=== PATIENT | female | born 1945 | race Two or more races ===

== ENCOUNTER 2016-06-16 13:06 | Emergency (ER) | payer OTHER ==
[2016-06-16 13:22] VITALS: BMI 37.5
--- NOTE | 2016-06-16 13:30 | PDOC ---
History of Present Illness - General History Source: Patient Exam Limitations: No Limitations - History of Present Illness Initial Comments: 06/16/16 13:46 The patient is a 70 year old female with a significant past medical history of hypertension and asthma who presents to the ED with complaints of abdominal pain , nausea, and diarrhea for 2 days. The patient reports generalized abdominal pain with associated nausea and diarrhea. She reports an episode of yellow- colored watery stool last night and one episode of vomiting this morning. The patient reports a subjective fever last night associated with present symptoms. She states her son had diarrhea last week but notes his symptoms are getting better. Denies chest pain or shortness of breath. Denies hematochezia. Denies urinary changes. Denies any other symptoms. Social hx: The patient denies tobacco, drug, or alcohol use. Surgical hx: Tubal ligation PMD: Dr. Wolff. <Josué Monsalve - Last Filed: 06/16/16 13:46> <Ap Hwang - Last Filed: 06/16/16 17:21> - General Chief Complaint: Vomiting/Diarrhea Stated Complaint: FEVER/VOMITING Time Seen by Provider: 06/16/16 13:29 Past History <Josué Monsalve - Last Filed: 06/16/16 13:46> - Past Medical History Anemia: No Asthma: Yes Cancer: No Cardiac Disorders: No CVA: No COPD: No CHF: No Dementia: No Diabetes: No GI Disorders: No Disorders: No HTN: Yes Hypercholesterolemia: Yes Liver Disease: No Seizures: No Thyroid Disease: No - Surgical History Abdominal Surgery: No Appendectomy: No Cardiac Surgery: No Cholecystectomy: No Lung Surgery: No Neurologic Surgery: No Orthopedic Surgery: No - Psycho/Social/Smoking Cessation Hx Anxiety: No Suicidal Ideation: No Smoking Status: No Smoking History: Never smoked Have you smoked in the past 12 months: No Number of Cigarettes Smoked Daily: 0 Information on smoking cessation initiated: No Hx Alcohol Use: No Drug/Substance Use Hx: No Substance Use Type: None Hx Substance Use Treatment: No <Ap Hwang - Last Filed: 06/16/16 17:21> - Past Medical History Allergies/Adverse Reactions: Allergies Allergy/AdvReac Type Severity Reaction Status Date / Time No Known Allergies Allergy Verified 06/16/16 13:08 Home Medications: Ambulatory Orders Aspirin [ASA -] 81 mg PO DAILY 07/22/12 Telmisartan [Micardis] 40 mg PO DAILY 07/22/12 Metoprolol Succinate [Toprol XL -] 25 mg PO DAILY #0 tab.sr.24h 07/25/12 Albuterol Sulfate Inhaler - [Ventolin HFA Inhaler -] 2 inh PO Q4H PRN #1 inh 02/02 Azithromycin [Zithromax Z-TIAGO (5 DAYS) -] 250 mg PO ASDIR #6 tablet NS 08/30/14 Loratadine [Claritin -] 10 mg PO DAILY 08/30/14 Ondansetron [Zofran *Odt*] 8 mg SL TID #30 od.tablet 06/16/16 Review of Systems - Review of Systems Able to Perform ROS?: Yes Comments:: 06/16/16 13:46 GENERAL/CONSTITUTIONAL: + fever. No weakness. HEAD, EYES, EARS, NOSE AND THROAT: No change in vision. No ear pain or discharge. No sore throat. CARDIOVASCULAR: No chest pain or shortness of breath. RESPIRATORY: No cough, wheezing, or hemoptysis. GASTROINTESTINAL: + abdominal pain, nausea, vomiting, diarrhea. No constipation. GENITOURINARY: No dysuria, frequency, or change in urination. MUSCULOSKELETAL: No joint or muscle swelling or pain. No neck or back pain. SKIN: No rash NEUROLOGIC: No headache, vertigo, loss of consciousness, or change in strength/ sensation. ENDOCRINE: No increased thirst. No abnormal weight change. HEMATOLOGIC/LYMPHATIC: No anemia, easy bleeding, or history of blood clots. ALLERGIC/IMMUNOLOGIC: No hives or skin allergy. All Other Systems: Reviewed and Negative <Josué Monsalve - Last Filed: 06/16/16 13:46> *Physical Exam - Vital Signs Last Vital Signs Temp Pulse Resp BP Pulse Ox 98.3 F 101 H 18 146/62 96 06/16/16 13:09 06/16/16 13:09 06/16/16 13:09 06/16/16 13:09 06/16/16 13:09 - Physical Exam Comments: 06/16/16 13:46 GENERAL: Awake, alert, and fully oriented, in no acute distress HEAD: No signs of trauma EYES: PERRLA, EOMI, sclera anicteric, conjunctiva clear ENT: Auricles normal inspection, hearing grossly normal, nares patent, oropharynx clear without exudates. Moist mucosa NECK: Normal ROM, supple, no lymphadenopathy, JVD, or masses LUNGS: Breath sounds equal, clear to auscultation bilaterally. No wheezes, and no crackles HEART: Regular rate and rhythm, normal S1 and S2, no murmurs, rubs or gallops ABDOMEN: Soft, nontender, normoactive bowel sounds. No guarding, no rebound. No masses EXTREMITIES: Normal range of motion, no edema. No clubbing or cyanosis. No cords, erythema, or tenderness NEUROLOGICAL: Cranial nerves II through XII grossly intact. Normal speech, normal gait SKIN: Warm, Dry, normal turgor, no rashes or lesions noted. <Josué Monsalve - Last Filed: 06/16/16 13:46> - Vital Signs Last Vital Signs Temp Pulse Resp BP Pulse Ox 98.3 F 101 H 18 146/62 96 06/16/16 13:09 06/16/16 13:09 06/16/16 13:09 06/16/16 13:09 06/16/16 13:09 <Ap Hwang - Last Filed: 06/16/16 17:21> ED Treatment Course - LABORATORY CBC & Chemistry Diagram: 06/16/16 14:02 06/16/16 14:02 <Ap Hwang - Last Filed: 06/16/16 17:21> *DC/Admit/Observation/Transfer - Attestations Scribe Attestion: 06/16/16 13:47 Documentation prepared by Josué Monsalve, acting as ophthalmic medical technologist for Ap Hwang MD <Josué Monsalve - Last Filed: 06/16/16 13:46> - Discharge Dispostion Admit: No - Attestations Physician Attestion: 06/16/16 13:30 I, Dr. Ap Hwang, attest that this document has been prepared under my direction and personally reviewed by me in its entirety. I further attest, that it accurately reflects all work, treatment, procedures and medical decision -making performed by me. <Ap Hwang - Last Filed: 06/16/16 17:21> Diagnosis at time of Disposition: Gastroenteritis - Discharge Dispostion Disposition: HOME Condition at time of disposition: Good - Prescriptions Prescriptions: Ondansetron [Zofran *Odt*] 8 mg SL TID #30 od.tablet - Referrals Referrals: Emily Brown MD [Primary Care Provider] - - Patient Instructions Printed Discharge Instructions: DI for Viral Gastroenteritis -- Adult, Viral Gastroenteritis Additional Instructions: Use the Zofran for nausea or vomiting.
[2016-06-16] MEDS ORDERED: morphine CARPU-JECT 2 MG/1 ML DISP.SYRIN IVPUSH ONE (14:02)
[2016-06-16] MEDS ORDERED: SODIUM CHLORIDE 1,000 ML IV STA (14:02)
[2016-06-16] MEDS ORDERED: ONDANSETRON 4 MG/2 ML VIAL IVPUSH ONE (14:02)
[2016-06-16] MEDS ORDERED: morphine CARPU-JECT 2 MG/1 ML DISP.SYRIN ONE (14:05)
[2016-06-16] MEDS ORDERED: ONDANSETRON 4 MG/2 ML VIAL ONE (14:06)
[2016-06-16 14:25] LABS: BASOPHIL 0.4 % (0-2.0); EOSINOPHIL 2.1 % (0-4.5); MCHC 34.5 g/dl (32.0-36.0); MEAN CELL VOLUME 86.8 fl (80-96); MEAN PLT VOLUME 8.2 fl (7.5-11.1); NEUTROPHILS 83.6 % (42.8-82.8); PLATELET COUNT 239 K/MM3 (134-434); RDW 14.3 % (11.6-15.6); WHITE BLOOD COUNT 6.2 K/mm3 (4.0-10.0)
[2016-06-16 14:38] LABS: INR 1.04 (0.82-1.09); PROTHROMBIN TIME (PATIENT) 11.4 SEC (9.98-11.88)
[2016-06-16 14:47] LABS: URINE APPEARANCE CLEAR; URINE BILIRUBIN NEGATIVE (NEGATIVE); URINE COLOR YELLOW; URINE GLUCOSE (UA) NEGATIVE (NEGATIVE); URINE KETONE NEGATIVE (NEGATIVE); URINE NITRITE NEGATIVE (NEGATIVE); URINE PROTEIN NEGATIVE (NEGATIVE); URINE UROBILINOGEN NEGATIVE E.U./dl (0.2-1.0)
[2016-06-16 14:48] LABS: ALBUMIN 3.9 g/dl (3.4-5.0); ANION GAP 11 (8-16); CALCIUM 8.8 mg/dL (8.5-10.1); CO2 21 mmol/L (21-32); COCKROFT - GAULT 77.605; CREATININE 0.9 mg/dL (0.55-1.02); GLUCOSE,RANDOM 101 mg/dL (74-106); SGPT/ALT 48 U/L (12-78)
[2016-06-16 14:50] LABS: ALK PHOS 124 U/L (45-117); BILIRUBIN,TOTAL 0.7 mg/dL (0.2-1.0); TOT PROT 7.8 g/dl (6.4-8.2)
[2016-06-16 15:03] LABS: URINE BLOOD 1+ (NEGATIVE); URINE LEUK ESTERASE 1+ (NEGATIVE)
[2016-06-16 15:04] LABS: URINE HYALINE CAST 1 /lpf; URINE MUCUS RARE; URINE RBC 4 /hpf (0-3); URINE WBC 3 /hpf (3-5)
[2016-06-16 15:18] LABS: SGOT/AST 59 U/L (15-37)
[2016-06-16] MEDS ORDERED: ACETAMINOPHEN 325 MG TABLET (FP) ONE (17:51)
[2016-06-16 18:18] VITALS: BP 149/68; PULSE 110; TEMP 98.9
[2016-06-16] MEDS ORDERED: ACETAMINOPHEN 325 MG TABLET (FP) PO ONE (18:20)
== END 2016-06-16 18:15 | disposition home or self-care (01) ==
LOC: JER 13:06
PROC: 3E033NZ Introduction of Analgesics, Hypnotics, Sedatives into Peripheral Vein, Percutaneous Approach (ICD-10-PCS; principal; 2016-06-16)
PROC: 3E033GC Introduction of Other Therapeutic Substance into Peripheral Vein, Percutaneous Approach (ICD-10-PCS; 2016-06-16)
PROC: 3E0337Z Introduction of Electrolytic and Water Balance Substance into Peripheral Vein, Percutaneous Approach (ICD-10-PCS; 2016-06-16)
DX: K52.9 Noninfective gastroenteritis and colitis, unspecified (principal); J45.909 Unspecified asthma, uncomplicated; I10 Essential (primary) hypertension; E78.00 Pure hypercholesterolemia, unspecified
CPT/HCPCS: 36415; 80053; 81003; 81015; 83690; 85025; 85610; 87045; 87046; 87086; 87324; 87449; 96361; 96374; 96375; 99283-25

== ENCOUNTER 2019-01-24 13:05 | Observation (INO) | payer OTHER ==
--- NOTE | 2019-01-24 14:41 | PDOC ---
Attending Attestation - Resident Resident Name: George Haddad - ED Attending Attestation I have performed the following: I have examined & evaluated the patient, The case was reviewed & discussed with the resident, I agree w/resident's findings & plan, Exceptions are as noted - HPI HPI: 01/24/19 15:10 Ms. Ella Jorge is a 73 yo F who presents to the ER with a complaint of dizziness Pt states she has had dizziness for the past 3 days, began while resting She admits to some chest pain, present today Chest pain is worse on exertion, described as heaviness and pressure, no radiation No fevers or chills No cough Pt denies SOB, back pain, abdminal pain, changes in bowel or bladder habits, calf tenderness, recent travel. 01/24/19 16:09 - Physicial Exam PE: 01/24/19 15:02 GENERAL: The patient is in no acute distress. ENT: Ears normal, nares patent, oropharynx clear without exudates. Moist mucous membranes. No tonsillar enlargement, no exudates NECK: Normal range of motion, supple, no nuchal rigidity (+) LAD LUNGS: Breath sounds equal, clear to auscultation bilaterally. No wheezes, and no crackles. HEART:Regular rate and rhythm, normal S1 and S2 without murmur, rub or gallop. ABDOMEN: Soft, nontender, normoactive bowel sounds. EXTREMITIES: Normal range of motion, no edema. NEUROLOGICAL: Cranial nerves II through XII grossly intact. Normal speech. No focal neurological deficits. SKIN: Warm, Dry, normal turgor, no rashes or lesions noted. - Medical Decision Making 01/24/19 15:00 73yo F presenting with weakness, dizziness and chest pain Differential includes cardiac ischemia, pe, asthma exacerbation, pneumonia, pneumothorax, pleural effusion, costochondritis, pericarditis, GERD. Will do: Labs EKG CXR Admit EKG: Twelve-lead EKG was performed and reviewed by me. There is normal sinus rhythm with a normal rate of 72 bpm. The axis is normal. The intervals are normal. There are no ST or T wave abnormalities. Impression: Normal twelve-lead EKG 01/24/19 15:15 results pending Signed out to overnight team Will plan to admit
[2019-01-24 15:14] LABS: BASO % 1.4 % (0-2.0); EOS % 2.3 % (0-4.5); HEMATOCRIT 35.3 % (32.4-45.2); HEMOGLOBIN 11.9 GM/dL (10.7-15.3); LYMPH % 32.8 % (8-40); MCH 30.1 pg (25.7-33.7); MCHC 33.7 g/dl (32.0-36.0); MEAN CELL VOLUME 89.2 fl (80-96); MEAN PLT VOLUME 8.3 fl (7.5-11.1); MONO % 10.9 % (3.8-10.2); NEUT % 52.6 % (42.8-82.8); PLATELET COUNT 236 K/MM3 (134-434); RBC 3.96 M/mm3 (3.60-5.2); RDW 12.8 % (11.6-15.6)
--- NOTE | 2019-01-24 15:22 | PDOC ---
History of Present Illness - General Chief Complaint: Lightheaded Stated Complaint: VOMITING/DIZZYNESS Time Seen by Provider: 01/24/19 13:49 History Source: Patient Exam Limitations: No Limitations - History of Present Illness Initial Comments: 01/24/19 15:09 73 yo female pmh HTN, HLD presents to the ED with 3 days of nausea, dizziness, exertional CP. Pt states the symptoms began 3 days ago, started while resting at home. States the CP is worse on exertion, described as heaviness and pressure , denies radiation or history of similar pain. Pain has improved but states she feels mild pain currently. Pt [employer] Handling Supervisor is Dr. Willams, states last visit and echo was 1 month ago stated as normal. Pt denies SOB, back pain, abdminal pain, changes in bowel or bladder habits, calf tenderness, recent travel. Past History - Past Medical History Allergies/Adverse Reactions: Allergies Allergy/AdvReac Type Severity Reaction Status Date / Time No Known Allergies Allergy Verified 01/24/19 13:12 Home Medications: Ambulatory Orders Aspirin [ASA -] 81 mg PO DAILY 07/22/12 Telmisartan [Micardis] 40 mg PO DAILY 07/22/12 Metoprolol Succinate [Toprol XL -] 25 mg PO DAILY #0 tab.sr.24h 07/25/12 Albuterol Sulfate Inhaler - [Ventolin HFA Inhaler -] 2 inh PO Q4H PRN #1 inh 02/02 Azithromycin [Zithromax Z-TIAGO (5 DAYS) -] 250 mg PO ASDIR #6 tablet NS 08/30/14 Loratadine [Claritin -] 10 mg PO DAILY 08/30/14 Ondansetron [Zofran *Odt*] 8 mg SL TID #30 od.tablet 06/16/16 Anemia: No Asthma: Yes Cancer: No Cardiac Disorders: No CVA: No COPD: No CHF: No Dementia: No Diabetes: No GI Disorders: No Disorders: No HTN: Yes Hypercholesterolemia: Yes Liver Disease: No Seizures: No Thyroid Disease: No - Surgical History Abdominal Surgery: No Appendectomy: No Cardiac Surgery: No Cholecystectomy: No Lung Surgery: No Neurologic Surgery: No Orthopedic Surgery: No - Psycho Social/Smoking Cessation Hx Smoking Status: No Smoking History: Never smoked Have you smoked in the past 12 months: No Number of Cigarettes Smoked Daily: 0 Hx Alcohol Use: No Drug/Substance Use Hx: No Substance Use Type: None Hx Substance Use Treatment: No Review of Systems - Review of Systems Constitutional: No: Chills, Fever HEENTM: No: Blurred Vision, Double Vision Respiratory: No: Shortness of Breath Cardiac (ROS): Yes: Chest Pain (on exertion). No: Edema, Palpitations, Syncope ABD/GI: Yes: Nausea. No: Constipated, Diarrhea, Vomiting : No: Burning, Dysuria, Frequency, Flank Pain Integumentary: No: Change in Color *Physical Exam - Vital Signs Last Vital Signs Temp Pulse Resp BP Pulse Ox 98.2 F 75 18 153/48 L 98 01/24/19 13:08 01/24/19 13:08 01/24/19 13:08 01/24/19 13:08 01/24/19 13:08 - Physical Exam General Appearance: Yes: Nourished, Appropriately Dressed. No: Apparent Distress HEENT: positive: EOMI Neck: positive: Supple. negative: Carotid bruit Respiratory/Chest: positive: Lungs Clear, Normal Breath Sounds. negative: Respiratory Distress, Accessory Muscle Use, Crackles, Rales, Rhonchi, Stridor, Wheezing Cardiovascular: positive: Regular Rhythm, Regular Rate, S1, S2. negative: Edema , JVD, Murmur Vascular Pulses: Dorsalis-Pedis (R): 4+, Doralis-Pedis (L): 4+ Gastrointestinal/Abdominal: positive: Flat, Soft. negative: Pulsatile Mass, Distended, Guarding, Rebound, Tenderness Musculoskeletal: negative: CVA Tenderness Extremity: positive: Normal Capillary Refill, Normal Inspection, Normal Range of Motion Integumentary: positive: Normal Color, Dry, Warm Neurologic: positive: Fully Oriented, Alert, Normal Mood/Affect ED Treatment Course - LABORATORY CBC & Chemistry Diagram: 01/24/19 15:00 01/24/19 15:00 - RADIOLOGY Radiology Studies Ordered: Category Date Time Status CHEST PA & LAT [RAD] Stat Radiology 01/24/19 14:12 Ordered Medical Decision Making - Medical Decision Making 01/24/19 15:37 73 yo female pmh HTN, HLD presents to the ED with 3 days of nausea, dizziness, exertional CP. Pt states the symptoms began 3 days ago, started while resting at home. States the CP is worse on exertion, described as heaviness and pressure , denies radiation or history of similar pain. Pain has improved but states she feels mild pain currently. Pt Co[employer] Handling Supervisor is Dr. Willams, states last visit and echo was 1 month ago stated as normal. Pt denies SOB, back pain, abdminal pain, changes in bowel or bladder habits, calf tenderness, recent travel. vitals stable DDX INLT: ACS, PE, dissection trops neg EKG NSR no acute ischemic changes discussed case with Dr. Arroyo, pt [employer] Handling Supervisor, states he will see pt when admitted to tele Pt denies CP currently, does admit to mild headache and nausea, tylenol and zofran ordered 01/24/19 17:50 Pt admitted to Tele obs as per hospitalist team Discharge - Discharge Information Problems reviewed: Yes Clinical Impression/Diagnosis: Ruled out for myocardial infarction Condition: Stable - Admission Yes - Follow up/Referral Referrals: Emily Brown MD [Primary Care Provider] - - Patient Discharge Instructions - Post Discharge Activity
[2019-01-24] MEDS ORDERED: ACETAMINOPHEN 1000 MG/100 ML VIAL (NON FORMULARY) IVPB ONE (15:44)
[2019-01-24] MEDS ORDERED: ONDANSETRON 4 MG/2 ML VIAL IVPUSH ONE (15:44)
[2019-01-24 15:51] LABS: ALBUMIN 3.5 g/dl (3.4-5.0); BILIRUBIN,TOTAL 0.3 mg/dL (0.2-1); CALCIUM 8.8 mg/dL (8.5-10.1); CREATININE 1.1 mg/dL (0.55-1.3); POTASSIUM 4.7 mmol/L (3.5-5.1)
[2019-01-24] MEDS ORDERED: ACETAMINOPHEN INJECTION 100 ML IVPB ONE (16:14)
[2019-01-24] MEDS ORDERED: ONDANSETRON 4 MG/2 ML VIAL ONE (16:14)
[2019-01-24] MEDS ORDERED: ALBUTEROL SO4 8 GM HFA INHALER IH PRN (18:30)
--- NOTE | 2019-01-24 18:42 | HP ---
<Ragini Daley - Last Filed: 01/24/19 19:23> Hospitalist Medicine Admission 73 y/o F with PMH HTN, HLD, who presents for dizziness, nausea, chest pain over the last three days. Per pt and daughter at bedside, has had substernal CP which occurs both at rest and on exertion. Daughter believes it is also related to stress, as pt has been very emotional lately with family problems. Pain lasts for 1-2 hours when it occurs, and is alleviated by Tylenol.No other alleviating or exacerbating fx. A/w nausea without emesis, no SOB. Denies GARCÍA, fever, chills, or changes in urinary or bowel function. Follows with Dr. Willams. trop (-) x 1. EKG NSR without acute St-t wave changes. Per pt, she had a normal ECHO approx a month ago. PMH: as above PsxH: denies meds: as in chart allergies: NKDA FH: grandmother- cardiac hx SH: denies smoking, alc, or drug use HOME MEDICATIONS: Home Medications Medication Instructions Recorded Aspirin [ASA -] 81 mg PO DAILY 07/22/12 Telmisartan [Micardis] 40 mg PO DAILY 07/22/12 Metoprolol Succinate [Toprol XL -] 25 mg PO DAILY #0 tab.sr.24h 07/25/12 Albuterol Sulfate Inhaler - 2 inh PO Q4H PRN #1 inh 08/30/14 [Ventolin HFA Inhaler -] Azithromycin [Zithromax Z-TIAGO (5 250 mg PO ASDIR #6 tablet NS 08/30/14 DAYS) -] PHYSICAL EXAMINATION Vital Signs - 24 hr 01/24/19 13:08 Temperature 98.2 F Pulse Rate 75 Respiratory 18 Rate Blood Pressure 153/48 L O2 Sat by Pulse 98 Oximetry (%) General: resting in bed, in NAD HEENT: NCAT neck: supple cardio: S1, S2, RRR. no r/m/g. non reproducible CP pulm: CTA b/l. no accessory m usage abdomen: obese, diffusely TTP. no guarding , or rigidity LE: 2+ pulses, 1+ pitting edema Laboratory Results - last 24 hr 01/24/19 01/24/19 01/24/19 15:00 15:00 15:00 WBC 5.0 RBC 3.96 Hgb 11.9 Hct 35.3 MCV 89.2 MCH 30.1 MCHC 33.7 RDW 12.8 D Plt Count 236 MPV 8.3 Absolute Neuts (auto) 2.7 Neutrophils % 52.6 D Lymphocytes % 32.8 D Monocytes % 10.9 H Eosinophils % 2.3 Basophils % 1.4 D Nucleated RBC % 0 Sodium 135 L Potassium 4.7 Chloride 102 Carbon Dioxide 26 Anion Gap 7 L BUN 18.0 Creatinine 1.1 Est GFR (CKD-EPI)AfAm 56.87 Est GFR (CKD-EPI)NonAf 49.07 Random Glucose 98 Calcium 8.8 Magnesium Total Bilirubin 0.3 AST 54 H ALT 53 Alkaline Phosphatase 86 Creatine Kinase 203 H Creatine Kinase Index 0.6 CK-MB (CK-2) 1.4 Troponin I < 0.02 Total Protein 7.0 Albumin 3.5 CXR: blunting L costophrenic angle, may be 2/2 obesity. similar to previous EKG: NSR, HR 72ms, qtc 424ms, no acute st-t wave changes ASSESSMENT/PLAN: 73 y/o F with PMH HTN, HLD, who presents for dizziness, nausea, chest pain over the last three days. #R/o ACS -on exertion and at rest, currently asymptomatic -EKG without acute st-t wave changes -repeat ECHO -trend trops. first (-) -f/u lipid panel, TSH, a1c -K>4, Mg>2 -pt's cardio consulted: Dr. Willams. will determine whether pt needs stress test -last stress test (2012): small sized mild intensity inferior wall ischemia -ECHO 2013: EF 60%. without regurgitations #HTN-controlled -c/w toprol, telmisartan #LE edema -f/u duplex LE -f/u BNP #F/E/N no need for IVF at this time continue to follow lytes na controlled/fat controlled diet #PPX DVT: SCD's #Dispo tele-obs Visit type - Emergency Visit Emergency Visit: Yes ED Registration Date: 01/24/19 Care time: The patient presented to the Emergency Department on the above date and was hospitalized for further evaluation of their emergent condition. - New Patient This patient is new to me today: Yes Date on this admission: 01/24/19 - Critical Care Critical Care patient: No <Sherman Stevens - Last Filed: 01/25/19 09:40> Pt seen and examined; agree w/ above as documented aside from as supplemented with by myself. Independently reviewed and verified the information and discussed. Patient with intermediate pretest probability due to risk factors with a remotely +stress presents for chest pain; r/o ND. Reviewed initial EKG-is negative. Given pretest probability agree with above- FU the overall clinical picture. Will defer need for inpt stress to CV. Continue home meds, check labs to assess risk factors, check BNP, adjust zocor as needed and on ASA 81. Monitor trops, tele. Appreciate CV co,sult. Allergies No Known Allergies Allergy (Verified 01/24/19 13:12) HOME MEDICATIONS: Home Medications Medication Instructions Recorded Acetaminophen [Tylenol] 1,000 mg PO BIDAC PRN 01/24/19 Albuterol Sulfate [Proventil Hfa] 90 mcg IH PRN PRN 01/24/19 Aspirin 81 mg PO DAILY 01/24/19 Fluticasone Prop 0.05% Nasal 1 - 2 spray NS DAILY 01/24/19 [Flonase -] Fluticasone Propionate [Flovent 110 mcg IH 01/24/19 Hfa] Loratadine [Claritin] 10 mg PO DAILY 01/24/19 Metoprolol Succinate [Toprol Xl] 25 mg PO DAILY 01/24/19 Olmesartan Medoxomil [Benicar (Nf)] 20 mg PO DAILY 01/24/19 Simvastatin [Zocor] 20 mg PO HS 01/24/19 REVIEW OF SYSTEMS 10 sys ROS done and negative aside from HPI PHYSICAL EXAMINATION Vital Signs - 24 hr 01/24/19 01/24/19 01/24/19 13:08 18:41 19:17 Temperature 98.2 F 37.8 F L 98.0 F Pulse Rate 75 Pulse Rate [ 72 64 Brachial] Respiratory 18 18 18 Rate Blood Pressure 153/48 L Blood Pressure 120/80 124/80 [Left] O2 Sat by Pulse 98 100 100 Oximetry (%) 01/24/19 01/25/19 01/25/19 22:25 01:52 05:28 Temperature 98.4 F 97.8 F 97.7 F Pulse Rate 62 61 62 Pulse Rate [ Brachial] Respiratory 18 18 18 Rate Blood Pressure 138/62 134/55 L 148/73 Blood Pressure [Left] O2 Sat by Pulse 97 Oximetry (%) NAD AAO resting in bed HR wnl, s1/2+ Lungs CTAB, w/ sym exp NT ND +BS CN2-12 wnl, no fnd Normal mood, appropriate behavior Laboratory Results - last 24 hr 01/24/19 01/24/19 01/24/19 15:00 15:00 15:00 WBC 5.0 RBC 3.96 Hgb 11.9 Hct 35.3 MCV 89.2 MCH 30.1 MCHC 33.7 RDW 12.8 D Plt Count 236 MPV 8.3 Absolute Neuts (auto) 2.7 Neutrophils % 52.6 D Lymphocytes % 32.8 D Monocytes % 10.9 H Eosinophils % 2.3 Basophils % 1.4 D Nucleated RBC % 0 PT with INR INR PTT (Actin FS) Sodium 135 L Potassium 4.7 Chloride 102 Carbon Dioxide 26 Anion Gap 7 L BUN 18.0 Creatinine 1.1 Est GFR (CKD-EPI)AfAm 56.87 Est GFR (CKD-EPI)NonAf 49.07 Random Glucose 98 Calcium 8.8 Magnesium Total Bilirubin 0.3 AST 54 H ALT 53 Alkaline Phosphatase 86 Creatine Kinase 203 H Creatine Kinase Index 0.6 CK-MB (CK-2) 1.4 Troponin I < 0.02 Total Protein 7.0 Albumin 3.5 Triglycerides Cholesterol Total LDL Cholesterol HDL Cholesterol TSH 01/24/19 01/24/19 01/24/19 15:00 18:29 21:40 WBC RBC Hgb Hct MCV MCH MCHC RDW Plt Count MPV Absolute Neuts (auto) Neutrophils % Lymphocytes % Monocytes % Eosinophils % Basophils % Nucleated RBC % PT with INR INR PTT (Actin FS) Sodium Potassium Chloride Carbon Dioxide Anion Gap BUN Creatinine Est GFR (CKD-EPI)AfAm Est GFR (CKD-EPI)NonAf Random Glucose Calcium Magnesium 2.2 Total Bilirubin AST ALT Alkaline Phosphatase Creatine Kinase Creatine Kinase Index CK-MB (CK-2) Troponin I < 0.02 Total Protein Albumin Triglycerides 134 Cholesterol 140 Total LDL Cholesterol 73 HDL Cholesterol 51 TSH 2.75 01/24/19 22:00 WBC RBC Hgb Hct MCV MCH MCHC RDW Plt Count MPV Absolute Neuts (auto) Neutrophils % Lymphocytes % Monocytes % Eosinophils % Basophils % Nucleated RBC % PT with INR 12.00 INR 1.02 PTT (Actin FS) 28.3 Sodium Potassium Chloride Carbon Dioxide Anion Gap BUN Creatinine Est GFR (CKD-EPI)AfAm Est GFR (CKD-EPI)NonAf Random Glucose Calcium Magnesium Total Bilirubin AST ALT Alkaline Phosphatase Creatine Kinase Creatine Kinase Index CK-MB (CK-2) Troponin I Total Protein Albumin Triglycerides Cholesterol Total LDL Cholesterol HDL Cholesterol TSH ATTENDING PHYSICIAN STATEMENT I saw and evaluated the patient. I reviewed the resident's note and discussed the case with the resident. I agree with the resident's findings and plan as documented. SUBJECTIVE: OBJECTIVE: ASSESSMENT AND PLAN:
[2019-01-24] MEDS ORDERED: ASPIRIN 81 MG CHEWABLE TABLETS ONE (18:52)
[2019-01-24] MEDS: ASPIRIN 81 MG CHEWABLE TABLETS PO SCH (18:54)
[2019-01-24 22:50] LABS: INR 1.02 (0.83-1.09)
[2019-01-24 22:53] LABS: ACTIVATED PTT 28.3 SECONDS (25.2-36.5)
[2019-01-24 23:42] VITALS: BMI 35.0
[2019-01-25] MEDS ORDERED: PNEUMOC 13-VAL CONJ-DIP CRM/PF 0.5 ML DISP.SYRIN IM ONE (08:00)
[2019-01-25 08:07] LABS: BASO % 1.1 % (0-2.0); EOS % 3.9 % (0-4.5); HEMATOCRIT 34.8 % (32.4-45.2); HEMOGLOBIN 11.9 GM/dL (10.7-15.3); LYMPH % 39.5 % (8-40); MCH 30.2 pg (25.7-33.7); MCHC 34.1 g/dl (32.0-36.0); MEAN CELL VOLUME 88.6 fl (80-96); MEAN PLT VOLUME 8.4 fl (7.5-11.1); MONO % 9.7 % (3.8-10.2); NEUT % 45.8 % (42.8-82.8); PLATELET COUNT 240 K/MM3 (134-434); RBC 3.93 M/mm3 (3.60-5.2); RDW 12.8 % (11.6-15.6)
--- NOTE | 2019-01-25 08:14 | CON.CARD ---
Consult Consult Specialty:: Cardiology Referred by:: Adi Morgan Reason for Consultation:: chest pain - History of Present Illness Chief Complaint: dizziness, nausea and chest pain History of Present Illness: 73F with HTN, HLD, remote hx of mildly abnl stress test presents for eval of 30 minutes of substernal chest pressure associated with nausea and dizziness that occurred at rest following emotional distress. Denies exertional SOB but states she occasionally has exertional chest tightness. No palps/ syncope. No PND/orthopnea. No syncope. ECG NSR, enzymes negative. Feeling better this morning. History was obtained in Turkmen. 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: Alzheimer's, CVA, Dementia, Migraine, Multiple Sclerosis, Peripheral Neuropathy, Parkinson's, Seizure, Syncope, TIA, Vertigo, Other Cardio/Vascular: Yes: HTN, Hyperlipdemia Pulmonary: No: Asthma, Bronchitis, Cancer, COPD, O2 Dependent, Pneumonia, Previously Intubated, Pulmonary Embolus, Pulmonary Fibrosis, Sleep Apnea, Other Gastrointestinal: No: Ascites, Cancer, Constipation, Crohn's Disease, Diverticulitis, Diverticulosis, Esophageal Varices, Gastritis, GERD, GI Bleed, Hemorrhoids, Hiatal Hernia, Inflamatory Bowel Disease, Irritable Bowel Disease, Pancreatitis, Peptic Ulcer Disease, Ulcerative Colitis, Other Hepatobiliary: No: Cirrhosis, Cholelithiasis, Cholecystitis, Choledocholithiasis , Hepatitis A, Hepatitis B, Hepatitis C, Other Renal/: No: Renal Failure, Renal Inusuff, BPH, Cancer, Hematuria, Hemodialysis , Neurogenic Bladder, Renal Calculi, UTI, Other Heme/Onc: No: Anemia, B12 Deficiency, Bleeding Disorder, Cancer, Current Chemotherapy, Current Radiation Therapy, Hemochromatosis, Hypercoaguable State, Myeloproliferative Synd, Sickle Cell Disease, Sickle Cell Trait, Thrombocytopenia, Other Infectious Disease: No: AIDS, C-Diff, Herpes Zoster, HIV, MRSA, STD's, Tuberculosis, VREF, Other Psych: No: Addictions, Anxiety, Bipolar, Depression, Panic, Psychosis, Schizophrenia, Other Musculoskeletal: No: Bursitis, Chronic low back pain, Hemiparesis, Hemiplegia, Osteoarthritis, Paraplegia, Other Rheumatology: No: Fibromyalgia, Gout, Lupus, Rheumatoid Arthritis, Sarcoidosis, Vasculitis, Other ENT: No: Allergic Rhinitis, Sinusitis, Other Endocrine: No: Tioga's Disease, Tyro's Disease, Diabetes Insipidus, Diabetes Mellitus, Hyperparathyroidism, Hyperthyroidism, Hypothyroidism, Osteopenia, SIADH, Other Dermatology: No: Basal Cell, Cellulitis, Eczema, Melanoma, Psoriasis, Squamous Cell, Other - Alcohol/Substance Use Hx Alcohol Use: No - Smoking History Smoking history: Never smoked Have you smoked in the past 12 months: No Aproximately how many cigarettes per day: 0 - Social History History of Recent Travel: No Home Medications - Allergies Allergies/Adverse Reactions: Allergies Allergy/AdvReac Type Severity Reaction Status Date / Time No Known Allergies Allergy Verified 01/24/19 13:12 - Home Medications Home Medications: Ambulatory Orders Acetaminophen [Tylenol] 1,000 mg PO BIDAC PRN 01/24/19 Albuterol Sulfate [Proventil Hfa] 90 mcg IH PRN PRN 01/24/19 Aspirin 81 mg PO DAILY 01/24/19 Fluticasone Prop 0.05% Nasal [Flonase -] 1 - 2 spray NS DAILY 01/24/19 Fluticasone Propionate [Flovent Hfa] 110 mcg IH 01/24/19 Loratadine [Claritin] 10 mg PO DAILY 01/24/19 Metoprolol Succinate [Toprol Xl] 25 mg PO DAILY 01/24/19 Olmesartan Medoxomil [Benicar (Nf)] 20 mg PO DAILY 01/24/19 Simvastatin [Zocor] 20 mg PO HS 01/24/19 Family Medical History Family History: Unremarkable (not pertinent to this presentation) Review of Systems Findings/Remarks: see HPI - Review of Systems Constitutional: reports: No Symptoms Eyes: reports: No Symptoms HENT: reports: No Symptoms Neck: reports: No Symptoms Cardiovascular: reports: Chest Pain Respiratory: reports: No Symptoms Gastrointestinal: reports: No Symptoms Genitourinary: reports: No Symptoms Breasts: reports: No Symptoms Reported Musculoskeletal: reports: No Symptoms Neurological: reports: Dizziness - Risk Factors Known Risk Factors: Yes: Hypercholesterolemia, Hypertension Vital Signs: Vital Signs Temperature 97.7 F 01/25/19 05:28 Pulse Rate 62 01/25/19 05:28 Respiratory Rate 18 01/25/19 05:28 Blood Pressure 148/73 01/25/19 05:28 O2 Sat by Pulse Oximetry (%) 97 01/24/19 22:25 Constitutional: Yes: No Distress, Calm, Poor Hygeine Respiratory: Yes: CTA Bilaterally Gastrointestinal: Yes: Soft JVD: No Carotid Bruit: No PMI: Non-Displaced Heart Sounds: Yes: S1, S2 (rrr, no M/R/G) Edema: No Peripheral Pulses WNL: Yes Neurological: Yes: Alert, Oriented ...Motor Strength: WNL - Other Data Labs, Other Data: INR, PTT INR 1.02 (0.83-1.09) 01/24/19 22:00 Troponin, BNP 01/24/19 01/24/19 15:00 21:40 Troponin I < 0.02 < 0.02 Troponin, BNP 01/24/19 01/24/19 15:00 21:40 Troponin I < 0.02 < 0.[address] changes. Echo: Report Reviewed Imaging - Results Chest X-ray: Image Reviewed EKG: Image Reviewed Assessment/Plan IMP: 73F with several risk factors including HTN/HLD/post menopausal presents with episode of substernal chest pressure/ dizziness and nausea. In light of her multiple risk factors, and remote history of abnl stress test (? underlying CAD), inpatient evaluation is recommended. REC: 1. Tele 2. ASA daily 3. Plan for echo and nuclear stress prior to discharge. 4. Check Lipids. Will follow
[2019-01-25 08:20] LABS: ALBUMIN 3.7 g/dl (3.4-5.0); BILIRUBIN,TOTAL 0.3 mg/dL (0.2-1); CALCIUM 8.8 mg/dL (8.5-10.1); CREATININE 0.9 mg/dL (0.55-1.3); MAGNESIUM 2.2 mg/dL (1.8-2.4); PHOSPHOROUS 3.7 mg/dL (2.5-4.9); POTASSIUM 4.3 mmol/L (3.5-5.1); TOT PROT 6.8 g/dl (6.4-8.2)
[2019-01-25] MEDS: ASPIRIN 81 MG CHEWABLE TABLETS PO SCH (09:21)
[2019-01-25] MEDS: metoPROLOL SUCCINATE 25 MG TAB.SR.24H (FP) PO SCH (09:21)
[2019-01-25] MEDS ORDERED: VALSARTAN 160 MG TABLET (UD) PO SCH (10:00)
--- NOTE | 2019-01-25 17:05 | PN ---
Physical Exam: SUBJECTIVE: Patient seen and examined. Admits to mild chest pain non radiating located on mid chest. Denies sob or n/v OBJECTIVE: Vital Signs Period Temp Pulse Resp BP Sys/Rodriguez Pulse Ox Last 24 Hr 37.8 F-98.4 F 18-72 18-62 106-148/55-80 97-100 GENERAL: The patient is awake, alert, and fully oriented, in no acute distress. HEAD: Normal with no signs of trauma. NECK: supple. LUNGS: Breath sounds equal, clear to auscultation bilaterally, no wheezes, no crackles, no accessory muscle use. HEART: Regular rate and rhythm, S1, S2 ABDOMEN: Soft, nontender, nondistended, normoactive bowel sounds, no guarding, no rebound, no hepatosplenomegaly, no masses. EXTREMITIES: 2+ pulses, warm, well-perfused, no edema. PSYCH: Normal mood, normal affect. SKIN: Warm, dry, normal turgor Laboratory Results - last 24 hr 01/24/19 01/24/19 01/24/19 06:30 18:29 21:40 WBC RBC Hgb Hct MCV MCH MCHC RDW Plt Count MPV Absolute Neuts (auto) Neutrophils % Lymphocytes % Monocytes % Eosinophils % Basophils % Nucleated RBC % PT with INR INR PTT (Actin FS) Sodium Potassium Chloride Carbon Dioxide Anion Gap BUN Creatinine Est GFR (CKD-EPI)AfAm Est GFR (CKD-EPI)NonAf Random Glucose Hemoglobin A1c % 6.0 Calcium Phosphorus Magnesium Total Bilirubin AST ALT Alkaline Phosphatase Troponin I < 0.02 Total Protein Albumin Triglycerides 134 Cholesterol 140 Total LDL Cholesterol 73 HDL Cholesterol 51 TSH 2.75 01/24/19 01/25/19 01/25/19 22:00 06:30 06:30 WBC 4.0 RBC 3.93 Hgb 11.9 Hct 34.8 MCV 88.6 MCH 30.2 MCHC 34.1 RDW 12.8 Plt Count 240 MPV 8.4 Absolute Neuts (auto) 1.8 Neutrophils % 45.8 Lymphocytes % 39.5 D Monocytes % 9.7 Eosinophils % 3.9 Basophils % 1.1 Nucleated RBC % 0 PT with INR 12.00 INR 1.02 PTT (Actin FS) 28.3 Sodium 136 Potassium 4.3 Chloride 102 Carbon Dioxide 27 Anion Gap 8 BUN 16.0 Creatinine 0.9 Est GFR (CKD-EPI)AfAm 72.49 Est GFR (CKD-EPI)NonAf 62.55 Random Glucose 101 Hemoglobin A1c % Calcium 8.8 Phosphorus 3.7 Magnesium 2.2 Total Bilirubin 0.3 AST 37 ALT 47 Alkaline Phosphatase 75 Troponin I Total Protein 6.8 Albumin 3.7 Triglycerides Cholesterol Total LDL Cholesterol HDL Cholesterol TSH Active Medications Generic Name Dose Route Start Last Admin Trade Name Freq PRN Reason Stop Dose Admin Albuterol Sulfate 2 puff 01/24/19 18:30 Ventolin Hfa Inhaler - IH Q4H PRN SHORT OF BREATH/WHEEZING Aspirin 81 mg 01/24/19 18:30 01/25/19 09:21 Asa - PO 81 mg DAILY SARAH Administration Metoprolol Succinate 25 mg 01/25/19 10:00 01/25/19 09:21 Toprol Xl - PO 25 mg DAILY SARAH Administration Valsartan 160 mg 01/25/19 10:00 01/25/19 09:21 Diovan - PO 160 mg DAILY SARAH Administration ASSESSMENT/PLAN: 73 yo F w/ hx of HTN, HLD presents w/ chest pain admitted to r/o AR # chest pain r/o AR - trops negative - no ST elevation noted on EKG - cardiology consulted - stress test planned for Sunday as per cardiology - c/w asa, bblocker, toshia inhibitor - normal lipid # c/w chronic home meds # dvt ppx: heparin subq Problem List - Problems (1) Ruled out for myocardial infarction Code(s): Z03.89 - ENCNTR FOR OBS FOR OTH SUSPECTED DISEASES AND COND RULED OUT Visit type - Emergency Visit Emergency Visit: Yes ED Registration Date: 01/24/19 Care time: The patient presented to the Emergency Department on the above date and was hospitalized for further evaluation of their emergent condition. - New Patient This patient is new to me today: Yes Date on this admission: 01/25/19 - Critical Care Critical Care patient: No - Discharge Referral Referred to [facility] Med P.C.: No
[2019-01-25] MEDS ORDERED: ATORVASTATIN CA 40 MG TABLET (FP) PO SCH (22:00)
[2019-01-25] MEDS: HEPARIN NA (PORCINE) 5,000 UNITS/ML 1ML VIAL SQ SCH (23:17)
--- NOTE | 2019-01-25 23:21 | EKG ---
Test Reason : Blood Pressure : / mmHG Vent. Rate : 072 BPM Atrial Rate : 072 BPM P-R Int : 190 ms QRS Dur : 086 ms QT Int : 388 ms P-R-T Axes : 049 006 060 degrees QTc Int : 424 ms NORMAL SINUS RHYTHM NORMAL ECG WHEN COMPARED WITH ECG OF 23-JUL-2012 10:14, NO SIGNIFICANT CHANGE WAS FOUND Confirmed by SHARIFA SCHULTE MD ([id number]) on 01/25/2019 11:21:26 PM Referred By: Confirmed By:SHARIFA SCHULTE MD
[2019-01-26] MEDS ORDERED: VALSARTAN 160 MG TABLET (UD) PO SCH (07:49)
[2019-01-26] MEDS: HEPARIN NA (PORCINE) 5,000 UNITS/ML 1ML VIAL SQ SCH ×2 (09:17→21:55)
[2019-01-26] MEDS: metoPROLOL SUCCINATE 25 MG TAB.SR.24H (FP) PO SCH (09:17)
[2019-01-26] MEDS: ASPIRIN 81 MG CHEWABLE TABLETS PO SCH (09:17)
[2019-01-26] MEDS: VALSARTAN 40 MG TABLET (FP) PO SCH ×2 (09:20→21:55)
--- NOTE | 2019-01-26 10:47 | PN ---
Progress Note, Physician Chief Complaint: ambulating No CP or dizziness TELE: NSR - Current Medication List Current Medications: Active Medications Albuterol Sulfate (Ventolin Hfa Inhaler -) 2 puff IH Q4H PRN PRN Reason: SHORT OF BREATH/WHEEZING Aspirin (Asa -) 81 mg PO DAILY [facility] Last Admin: 01/26/19 09:17 Dose: 81 mg Heparin Sodium (Porcine) (Heparin -) 5,000 unit SQ BID [facility] Last Admin: 01/26/19 09:17 Dose: 5,000 unit Metoprolol Succinate (Toprol Xl -) 25 mg PO DAILY [facility] Last Admin: 01/26/19 09:17 Dose: 25 mg Valsartan (Diovan -) 40 mg PO BID [facility] Last Admin: 01/26/19 09:20 Dose: 40 mg - Objective Vital Signs: Vital Signs Temperature 98.5 F 01/26/19 08:28 Pulse Rate 61 01/26/19 08:28 Respiratory Rate 18 01/26/19 08:29 Blood Pressure 109/57 L 01/26/19 08:28 O2 Sat by Pulse Oximetry (%) 98 01/26/19 08:29 Constitutional: Yes: No Distress Cardiovascular: Yes: Regular Rate and Rhythm Respiratory: Yes: CTA Bilaterally Gastrointestinal: Yes: Soft, Abdomen, Obese Edema: No Neurological: Yes: Alert, Oriented Labs: CBC, BMP 01/25/19 06:30 01/25/19 06:30 INR, PTT INR 1.02 (0.83-1.09) 01/24/19 22:00 Laboratory Tests 01/24/19 01/24/19 01/24/19 15:00 18:29 21:40 WBC Hgb Plt Count INR Sodium Potassium Creatinine Magnesium Total Bilirubin AST ALT Alkaline Phosphatase CK-MB (CK-2) 1.4 Troponin I < 0.02 < 0.02 Total LDL Cholesterol 73 TSH 2.75 01/24/19 01/25/19 01/25/19 22:00 06:30 06:30 WBC 4.0 Hgb 11.9 Plt Count 240 INR 1.02 Sodium 136 Potassium 4.3 Creatinine 0.9 Magnesium 2.2 Total Bilirubin 0.3 AST 37 ALT 47 Alkaline Phosphatase 75 CK-MB (CK-2) Troponin I Total LDL Cholesterol TSH - ....Imaging EKG: Image Reviewed Assessment/Plan IMP: 73F with several risk factors including HTN/HLD/post menopausal presents with episode of substernal chest pressure/ dizziness and nausea. In light of her multiple risk factors, and remote history of abnl stress test (? underlying CAD), inpatient evaluation is recommended. REC: 1. Tele thus far benign. 2. ASA daily 3. Plan for echo and nuclear stress in AM. If WNL, can discharge home from CV perspective.
--- NOTE | 2019-01-26 12:37 | PN ---
Physical Exam: SUBJECTIVE: Patient seen and examined. Denies active chest pain, sob, or n/v OBJECTIVE: Vital Signs Period Temp Pulse Resp BP Sys/Rodriguez Pulse Ox Last 24 Hr 97.4 F-98.5 F 18-65 17-62 104-119/54-69 98-98 GENERAL: The patient is awake, alert, and fully oriented, in no acute distress. HEAD: Normal with no signs of trauma. NECK: supple. LUNGS: Breath sounds equal, clear to auscultation bilaterally, no wheezes, no crackles, no accessory muscle use. HEART: Regular rate and rhythm, S1, S2 ABDOMEN: Soft, nontender, nondistended, normoactive bowel sounds, no guarding, no rebound, no hepatosplenomegaly, no masses. EXTREMITIES: 2+ pulses, warm, well-perfused, no edema. PSYCH: Normal mood, normal affect. SKIN: Warm, dry, normal turgor Active Medications Generic Name Dose Route Start Last Admin Trade Name Freq PRN Reason Stop Dose Admin Albuterol Sulfate 2 puff 01/24/19 18:30 Ventolin Hfa Inhaler - IH Q4H PRN SHORT OF BREATH/WHEEZING Aspirin 81 mg 01/24/19 18:30 01/26/19 09:17 Asa - PO 81 mg DAILY SARAH Administration Heparin Sodium (Porcine) 5,000 unit 01/25/19 22:00 01/26/19 09:17 Heparin - SQ 5,000 unit BID SARAH Administration Metoprolol Succinate 25 mg 01/25/19 10:00 01/26/19 09:17 Toprol Xl - PO 25 mg DAILY SARAH Administration Valsartan 40 mg 01/26/19 10:00 01/26/19 09:20 Diovan - PO 40 mg BID SARAH Administration ASSESSMENT/PLAN: 73 yo F w/ hx of HTN, HLD presents w/ chest pain admitted to r/o MT # chest pain r/o MT - trops negative - no ST elevation noted on EKG - cardiology consulted - stress test planned for AM as per cardiology - c/w asa, bblocker, toshia inhibitor - normal lipid # c/w chronic home meds # dvt ppx: heparin subq Problem List - Problems (1) Ruled out for myocardial infarction Code(s): Z03.89 - ENCNTR FOR OBS FOR OTH SUSPECTED DISEASES AND COND RULED OUT Visit type - Emergency Visit Emergency Visit: Yes ED Registration Date: 01/24/19 Care time: The patient presented to the Emergency Department on the above date and was hospitalized for further evaluation of their emergent condition. - New Patient This patient is new to me today: No - Critical Care Critical Care patient: No - Discharge Referral Referred to [facility] Med P.C.: No
[2019-01-27] MEDS ORDERED: REGADENOSON 0.4 MG/5 ML PRE-FILLED SYRINGE IVPUSH ONE ×2 (10:34→11:00)
[2019-01-27] MEDS: HEPARIN NA (PORCINE) 5,000 UNITS/ML 1ML VIAL SQ SCH (12:49)
[2019-01-27] MEDS: VALSARTAN 40 MG TABLET (FP) PO SCH (12:49)
[2019-01-27] MEDS: metoPROLOL SUCCINATE 25 MG TAB.SR.24H (FP) PO SCH (12:49)
[2019-01-27] MEDS: ASPIRIN 81 MG CHEWABLE TABLETS PO SCH (12:49)
--- NOTE | 2019-01-27 13:42 | EKG ---
Test Reason : Blood Pressure : / mmHG Vent. Rate : 060 BPM Atrial Rate : 060 BPM P-R Int : 184 ms QRS Dur : 090 ms QT Int : 418 ms P-R-T Axes : 064 023 059 degrees QTc Int : 418 ms NORMAL SINUS RHYTHM NORMAL ECG WHEN COMPARED WITH ECG OF 24-JAN-2019 13:19, NO SIGNIFICANT CHANGE WAS FOUND Confirmed by LANI ANDRES MD ([id number]) on 01/27/2019 1:42:06 PM Referred By: Confirmed By:LANI ANDRES MD
[2019-01-27 15:29] VITALS: BP 129/78; PULSE 63; TEMP 98.2
--- NOTE | 2019-01-27 16:30 | PN ---
Progress Note (short form) - Note Progress Note: s: no cp sob palps dizzy Vital Signs Period Temp Pulse Resp BP Sys/Rodriguez Pulse Ox Last 24 Hr 97.5 F-98.7 F 55-67 20-20 121-143/55-78 99-99 Constitutional: Yes: No Distress Cardiovascular: Yes: Regular Rate and Rhythm Respiratory: Yes: CTA Bilaterally Gastrointestinal: Yes: Soft, Abdomen, Obese Edema: No Neurological: Yes: Alert, Oriented no jaundice diaphoresis Home Medications Medication Instructions Recorded Acetaminophen [Tylenol] 1,000 mg PO BIDAC PRN 01/24/19 Albuterol Sulfate [Proventil Hfa] 90 mcg IH PRN PRN 01/24/19 Aspirin 81 mg PO DAILY 01/24/19 Fluticasone Prop 0.05% Nasal 1 - 2 spray NS DAILY 01/24/19 [Flonase -] Fluticasone Propionate [Flovent 110 mcg IH 01/24/19 Hfa] Loratadine [Claritin] 10 mg PO DAILY 01/24/19 Metoprolol Succinate [Toprol Xl] 25 mg PO DAILY 01/24/19 Olmesartan Medoxomil [Benicar -] 20 mg PO DAILY 01/24/19 Simvastatin [Zocor] 20 mg PO HS 01/24/19 CBC, BMP 01/25/19 06:30 01/25/19 06:30 tele: - ....Imaging EKG: Image Reviewed Assessment/Plan IMP: 73F with several risk factors including HTN/HLD/post menopausal presents with episode of substernal chest pressure/ dizziness and nausea. In light of her multiple risk factors, and remote history of abnl stress test (? underlying CAD), inpatient evaluation is recommended. REC: 1. Tele benign, no further sxs 2. ASA daily 3. nuclear stress test here is unremarkable. If echo also WNL, can discharge home from CV perspective.
--- NOTE | 2019-01-27 19:05 | DS ---
Physical Exam: SUBJECTIVE: Patient seen and examined at bedside, after stress test. Without complaint; no chest pain. Family at bedside. Discussed at length OBJECTIVE: Vital Signs Period Temp Pulse Resp BP Sys/Rodriguez Pulse Ox Last 24 Hr 97.5 F-98.7 F 55-64 20-20 121-143/55-78 99-99 General: resting in bed, in NAD HEENT: NCAT neck: supple cardio: S1, S2, RRR. no r/m/g. non reproducible CP pulm: CTA b/l. no accessory m usage abdomen: obese, diffusely TTP. no guarding , or rigidity LE: 2+ pulses, 1+ pitting edema LABS Laboratory Tests 01/24/19 01/24/19 01/24/19 06:30 15:00 15:00 WBC 5.0 Hgb 11.9 Hct 35.3 MCV 89.2 Plt Count 236 Sodium Potassium Chloride Carbon Dioxide Anion Gap BUN Creatinine Hemoglobin A1c % 6.0 Calcium Magnesium Total Bilirubin AST ALT Alkaline Phosphatase Creatine Kinase 203 H Troponin I < 0.02 Triglycerides Cholesterol Total LDL Cholesterol HDL Cholesterol TSH 01/24/19 01/24/19 01/24/19 15:00 15:00 18:29 WBC Hgb Hct MCV Plt Count Sodium 135 L Potassium 4.7 Chloride 102 Carbon Dioxide 26 Anion Gap BUN 18.0 Creatinine 1.1 Hemoglobin A1c % Calcium 8.8 Magnesium 2.2 Total Bilirubin 0.3 AST 54 H ALT 53 Alkaline Phosphatase 86 Creatine Kinase Troponin I Triglycerides 134 Cholesterol 140 Total LDL Cholesterol 73 HDL Cholesterol 51 TSH 2.75 01/24/19 01/25/19 01/25/19 21:40 06:30 06:30 WBC 4.0 Hgb 11.9 Hct 34.8 MCV Plt Count 240 Sodium 136 Potassium 4.3 Chloride 102 Carbon Dioxide 27 Anion Gap 8 BUN 16.0 Creatinine 0.9 Hemoglobin A1c % Calcium Magnesium Total Bilirubin AST ALT Alkaline Phosphatase Creatine Kinase Troponin I < 0.02 Triglycerides Cholesterol Total LDL Cholesterol HDL Cholesterol TSH Imaging 01/27/19: Myoview perfusion scan/pharma: overall negative nuclear stress. appropriate BP response. patient remained asymptomatic. no significant EKG changes seen. normal myocardial spect scan . normal LV contraction with LV EF of 70% post lexiscan and 76% at rest. 01/24/19: Duplex: (-) for DVT EKG: NSR, 60 bpm, 418ms qtc. no st-t wave changes HOSPITAL COURSE: Date of Admission:01/24/19 Date of Discharge: 01/27/19 73 y/o F with PMH HTN, HLD, who presents for dizziness, nausea, chest pain over the last three days. #R/o ACS -on exertion and at rest, currently asymptomatic -EKG without acute st-t wave changes -trops (-) -lipid panel WNL -K>4, Mg>2 -pt's cardio consulted: Dr. Willams. pharma. stress test WNL as above. dc home w cont'd cardio f/u -last stress test (2012): small sized mild intensity inferior wall ischemia -ECHO 2012: EF 60%. without regurgitations #hx asthma -given pulm f/u #HTN-controlled -c/w toprol, telmisartan #LE edema -duplex (-) Minutes to complete discharge: 44 Discharge Summary Problems reviewed: Yes Reason For Visit: RULED OUT FOR MYOCARDIAL INFARCTION Condition: Stable - Instructions Diet, Activity, Other Instructions: You were in the hospital because you had chest pain. While you were here, your heart enzymes were followed. You do not have any damage to your heart muscle. You were seen by a combining machine operator (heart doctor) and had a stress test done. It was normal. You improved and are being sent home. Medications Please continue your home medications. You have not been started on any new ones. Follow up Please follow up with the following doctors on your discharge: -Primary care doctor, Dr. Guerrero - 3-5 days after your discharge to discuss your visit and establish care -Dr. Barron, the cardiology who saw you in the hospital - 1 week -Dr. Rios, a pulmonary (lung) doctor, who can discuss your asthma with you and help you have a sleep study- 1 week Referrals: Neo Guerrero MD [Staff Physician] - 01/30/19 Matti Barron MD [Staff Physician] - 1 Week Soham Rios MD [Staff Physician] - 1 Week Disposition: HOME - Home Medications Comprehensive Discharge Medication List: Ambulatory Orders Acetaminophen [Tylenol] 1,000 mg PO BIDAC PRN 01/24/19 Albuterol Sulfate [Proventil Hfa] 90 mcg IH PRN PRN 01/24/19 Aspirin 81 mg PO DAILY 01/24/19 Fluticasone Prop 0.05% Nasal [Flonase -] 1 - 2 spray NS DAILY 01/24/19 Fluticasone Propionate [Flovent Hfa] 110 mcg IH 01/24/19 Loratadine [Claritin] 10 mg PO DAILY 01/24/19 Metoprolol Succinate [Toprol Xl] 25 mg PO DAILY 01/24/19 Olmesartan Medoxomil [Benicar -] 20 mg PO DAILY 01/24/19 Simvastatin [Zocor] 20 mg PO HS 01/24/19 This patient is new to me today: No Emergency Visit: No Critical Care patient: No - Discharge Referral Referred to [facility] No
--- NOTE | 2019-01-28 07:08 | ECHO ---
Name: AMY ROBERT, TACOS Exam:Adult Echocardiogram Study Date: 01/27/2019 08:23 AM Age: 73 yrs Height: 63 in Weight: 200 lb BSA: 1.9 m2 MMode/2D Measurements & Calculations IVSd: 1.2 cm Ao root diam: 2.4 cm LVIDd: 3.4 cm LA dimension: 3.0 cm LVIDs: 2.4 cm LVPWd: 1.2 cm LVPWs: 1.3 cm EDV(Teich): 48.4 ml ESV(Teich): 19.9 ml LVOT diam: 2.0 cm Doppler Measurements & Calculations MV E max david: 70.1 cm/sec Ao V2 max: 152.0 cm/sec MV A max david: 97.2 cm/sec Ao max P.3 mmHg MV E/A: 0.72 MV dec time: 0.28 sec TRICIA(V,D): 1.9 cm2 LV V1 max P.7 mmHg PA V2 max: 126.2 cm/sec LV V1 max: 96.3 cm/sec PA max P.4 mmHg Med Peak E' David: 5.9 cm/sec Med E/e': 11.8 Lat Peak E' David: 6.8 cm/sec Lat E/e': 10.3 Procedure A complete two-dimensional transthoracic echocardiogram was performed (2D, M-mode, Doppler and color flow Doppler). Technically limited study. Left Ventricle The left ventricle is normal in size. There is mild concentric left ventricular hypertrophy. Left jorge tricular systolic function is normal. Ejection Fraction = 55-60%. Grade I diastolic dysfunction, (abnormal rel axation pattern). Ratio E/E'= 12. No regional wall motion abnormalities noted. Right Ventricle The right ventricle is normal size. The right ventricular systolic function is normal. RV systolic TD I is 11 cm/s. Atria The left atrial size is normal. Right atrial size is normal. Mitral Valve The mitral valve is normal in structure and function. There is no mitral regurgitation noted. Tricuspid Valve The tricuspid valve is normal in structure and function. No tricuspid regurgitation. Aortic Valve The aortic valve is normal in structure and function. No aortic regurgitation is present. Pulmonic Valve The pulmonic valve is not well visualized. Great Vessels The aortic root is normal size. Pericardium/Pleura There is no pericardial effusion. Interpretation Summary The left ventricle is normal in size. There is mild concentric left ventricular hypertrophy. Left ventricular systolic function is normal. No regional wall motion abnormalities noted. Ejection Fraction = 55-60%. Grade I diastolic dysfunction, (abnormal relaxation pattern). Ratio E/E'= 12 The right ventricular systolic function is normal. The left atrial size is normal. Right atrial size is normal. No significant valvular regurgitations are seen There is no pericardial effusion. Rayshawn Snow MD 01/27/2019 04:33 PM
== END 2019-01-27 16:23 | disposition home or self-care (01) ==
LOC: JER 13:05 → JERBED 16:57 → J4W 22:40
PROVIDERS: ADMIT Internal Medicine; ATTEND Internal Medicine
PROC: 3E013VG Introduction of Insulin into Subcutaneous Tissue, Percutaneous Approach (ICD-10-PCS; principal; 2019-01-27)
PROC: 3E033NZ Introduction of Analgesics, Hypnotics, Sedatives into Peripheral Vein, Percutaneous Approach (ICD-10-PCS; 2019-01-27)
PROC: 3E033GC Introduction of Other Therapeutic Substance into Peripheral Vein, Percutaneous Approach (ICD-10-PCS; 2019-01-27)
PROC: 3E033GC Introduction of Other Therapeutic Substance into Peripheral Vein, Percutaneous Approach (ICD-10-PCS; 2019-01-27)
DX: Z03.89 Encounter for observation for other suspected diseases and conditions ruled out (principal); R60.0 Localized edema; I10 Essential (primary) hypertension; E78.5 Hyperlipidemia, unspecified; J45.909 Unspecified asthma, uncomplicated; Z79.82 Long term (current) use of aspirin
CPT/HCPCS: 36415; 71045-TC-FY; 78452-TC; 80053; 80061; 82550; 82553; 83036; 83721; 83735; 84100; 84443; 84484; 85025; 85610; 85730; 93005; 93010; 93017; 93306-TC; 93970-TC; 97116-GP; 97161-GP; 99283-25; A9502; G0378; J0131; J1644; J2785

== ENCOUNTER 2021-04-06 18:36 | Emergency (ER) | payer OTHER ==
[2021-04-06 18:44] VITALS: BP 153/65; PULSE 70; TEMP 98.1; BMI 36.2
[2021-04-06] MEDS ORDERED: IBUPROFEN 600 MG TABLET (FP) PO ONE ×3 (19:52→20:04)
== END 2021-04-06 20:35 | disposition home or self-care (01) ==
LOC: JER 18:36
DX: S62.101A Fracture of unspecified carpal bone, right wrist, initial encounter for closed fracture (principal); W01.0XXA Fall on same level from slipping, tripping and stumbling without subsequent striking against object, initial encounter
CPT/HCPCS: 73110-TC-RT-FY; 73130-TC-RT-FY; 99283-25

== ENCOUNTER 2021-12-02 20:23 | Emergency (ER) | payer OTHER ==
[2021-12-02 20:34] VITALS: BP 173/67; PULSE 60; RESP 18; TEMP 98; BMI 34.2
[2021-12-02] MEDS ORDERED: IBUPROFEN 600 MG TABLET (FP) PO ONE ×2 (23:09→23:12)
== END 2021-12-02 23:59 | disposition home or self-care (01) ==
LOC: JER 20:23
DX: S09.90XA Unspecified injury of head, initial encounter (principal); S39.012A Strain of muscle, fascia and tendon of lower back, initial encounter; W19.XXXA Unspecified fall, initial encounter; Y92.9 Unspecified place or not applicable
CPT/HCPCS: 70450-TC; 71250-TC; 72125-TC; 72128-TC; 73030-TC-LT-FY; 99284-25

== ENCOUNTER 2023-01-03 03:34 | Day surgery (SDC) | payer OTHER ==
[2023-01-02 14:22] VITALS: BMI 30.7
[~2023-01-03 03:34] MED LIST: ACETAMINOPHEN 325 MG TABLET (FP) PO PRN
[2023-01-03] MEDS ORDERED: BSS (NA/CA/MG/K) BALANCED SALT SOLUTION OPHTH SOLN 15 ML BOTTLE ONE (07:43)
[2023-01-03] MEDS ORDERED: POVIDONE-IODINE 5% OPHTHALMIC PREP 30 ML SOLUTION ONE (07:43)
[2023-01-03] MEDS ORDERED: LIDOCAINE HCL/PF 1% SDV 5ML VIAL ONE (07:47)
[2023-01-03] MEDS ORDERED: PHENYLEPHRINE 2.5% OPTHALMIC DROP 2ML BOTTLE ONE (08:24)
[2023-01-03] MEDS ORDERED: KETOROLAC TROMETHAMINE 0.5% EYE DROP 1 DROP DROPS ONE (08:25)
[2023-01-03] MEDS ORDERED: CYCLOPENTOLATE HCL 1% OPHTH SOLN 2 ML BOTTLE ONE (08:26)
[2023-01-03] MEDS ORDERED: TROPICAMIDE 1% OPHTH SOLN 15 ML BOTTLE ONE (08:26)
[2023-01-03] MEDS ORDERED: OFLOXACIN 0.3% OPHTHALMIC SOLUTION 5 ML BOTTLE ONE (08:33)
[2023-01-03] MEDS: PHENYLEPHRINE 2.5% OPHTH SOLN 15 ML BOTTLE OP SCH ×3 (08:41→09:16)
[2023-01-03] MEDS: TROPICAMIDE 1% OPHTH SOLN 15 ML BOTTLE OP SCH ×3 (08:41→09:16)
[2023-01-03] MEDS: CYCLOPENTOLATE HCL 1% OPHTH SOLN 2 ML BOTTLE OP SCH ×3 (08:41→09:16)
[2023-01-03] MEDS: KETOROLAC TROMETHAMINE 0.5% EYE DROP 1 DROP DROPS OP SCH ×3 (08:41→09:16)
[2023-01-03] MEDS: OFLOXACIN 0.3% OPHTHALMIC SOLUTION 5 ML BOTTLE OP SCH ×3 (08:41→09:16)
[2023-01-03] MEDS ORDERED: MIDAZOLAM HCL 2 MG/2 ML SINGLE DOSE VIAL ONE (10:12)
[2023-01-03] MEDS ORDERED: FENTANYL CITRATE/PF 50 MCG/ML VIAL ONE (10:23)
[2023-01-03] MEDS ORDERED: TETRACAINE 0.5% OPHTH SOLN 2 ML BOTTLE TP ONE (10:28)
[2023-01-03] MEDS ORDERED: POVIDONE-IODINE 5% OPHTHALMIC PREP 30 ML SOLUTION OS ONE (10:30)
[2023-01-03] MEDS ORDERED: BSS (NA/CA/MG/K) BALANCED SALT SOLUTION OPHTH SOLN 15 ML BOTTLE OS ONE (10:35)
[2023-01-03] MEDS ORDERED: CHONDROITIN SU A/HYALUR SOD 1 KIT IO ONE (10:36)
[2023-01-03] MEDS ORDERED: LIDOCAINE HCL 1% PRESERVATIVE FREE - 30ML VIAL IO ONE (10:36)
[2023-01-03] MEDS ORDERED: EPINEPHrine/PF 1 MG/1 ML (1:1,000) AMPULE SQ ONE (10:42)
[2023-01-03] MEDS ORDERED: ACETAMINOPHEN 325 MG TABLET (FP) ONE (11:15)
[2023-01-03 13:18] VITALS: BP 118/58; PULSE 57; RESP 18; TEMP 97.7
== END 2023-01-03 12:10 | disposition home or self-care (01) ==
LOC: JASU-SURG 03:34
PROVIDERS: ATTEND Ophthalmology
PROC: 08RK3JZ Replacement of Left Lens with Synthetic Substitute, Percutaneous Approach (ICD-10-PCS; principal; 2023-01-03 10:00)
DX: H26.9 Unspecified cataract (principal)
CPT/HCPCS: V2632

== ENCOUNTER 2023-08-03 16:46 | Emergency (ER) | payer OTHER ==
[2023-08-03 16:51] VITALS: BP 160/53; PULSE 69; RESP 18; TEMP 98; BMI 34.7
[2023-08-03] MEDS ORDERED: IBUPROFEN 400 MG TABLET (FP) PO ONE (18:09)
[2023-08-03] MEDS: IBUPROFEN 200 MG TABLET PO ONE (18:11)
== END 2023-08-03 19:18 | disposition home or self-care (01) ==
LOC: JERFT 16:46
DX: M72.2 Plantar fascial fibromatosis (principal)
CPT/HCPCS: 73630-TC-RT-FY; 99283-25